=== PATIENT | female | born 1995 | race Caucasian/White ===

== ENCOUNTER 2017-07-06 23:43 | Emergency (ER) | payer OTHER ==
[~2017-07-06] VITALS: Ht 167.6 cm; Wt 56.5 kg
[2017-07-06 23:50] VITALS: TEMP 36.7; Ht 167.6 cm; Wt 56.5 kg
[2017-07-07 00:27] LABS: BASO % 0.4 %; BASO ABS # 0.03 K/uL (0-0.2); COMPLETE YES; EOS % 1.3 %; HEMATOCRIT 39.5 % (37-47); IG% 0.4 %; LYMPH % 40.9 %; LYMPH ABS # 3.27 K/uL (1.2-3.4); MEAN CELL VOLUME 83.5 fL (80-100); MEAN CORPUSCULAR HEMOGLOBIN 28.1 pg (25-34); MEAN CORPUSCULAR HGB CONC 33.7 g/dl (32-36); MEAN PLATELET VOLUME 10.1 fL (7.4-10.4); MONO % 6.8 %; NEUT % 50.2 %; PLATELET COUNT 210 K/uL (130-400); RED BLOOD COUNT 4.73 M/uL (4.2-5.4)
[2017-07-07] MEDS ORDERED: BCPILLS PO (00:31)
[2017-07-07 00:49] LABS: BUN/CREATININE RATIO 18.5 (10-20); CALCIUM 9.4 mg/dl (8.5-10.1); CREATININE 0.81 mg/dl (0.60-1.20); POTASSIUM 3.5 mmol/L (3.5-5.1)
[2017-07-07 00:52] LABS: ALB/GLOB RATIO 0.9 (0.9-2)
[2017-07-07 01:24] LABS: LYME DISEASE AB IGG NEG (NEG); LYME DISEASE AB IGM NEG (NEG)
[2017-07-07 03:37] VITALS: BP 92/49; PULSE 82; O2SAT 99
--- NOTE | 2017-07-07 05:22 | EMERGENCY ROOM VISIT NOTE ---
History First contact with patient: 23:54 Chief Complaint: KNEEPAIN Stated Complaint: SWELLING,REDNESS,PAIN BEHIND RIGHT KNEE History of Present Illness The patient is a 21 year old female who presents to the Emergency Room with complaints of redness and swelling to the right knee posteriorly for the past few days. The patient does not recall injury or trauma. She has not had fever or chills. She is able to ambulate without difficulty and has not had similar symptoms in the past. The patient is accompanied by her mother, who states there is a family history of antithrombin III, however the patient herself has never been evaluated for this. There is a history of DVT and PE on the maternal grandmother's side. The patient herself does not have fever, chills, chest pain, chest tightness, or shortness of breath. She does not recall having symptoms like this in the past. She is on control, however has not had significant travel history in the past few months. The patient rates her current discomfort a 4/10. Review of Systems More than 10 systems were reviewed and otherwise negative with the exception of history of present illness. Past Medical/Surgical History No chronic medical disease Family History No pertinent family history Social History Smoking Status: Never Smoker Housing Status: lives with family Current/Historical Medications Scheduled Control Pills ( Control Pills), 1 TAB PO DAILY Physical Exam Vital Signs Date Time Temp Pulse Resp B/P (MAP) Pulse Ox O2 Delivery O2 Flow Rate FiO2 07/07/17 03:37 82 18 92/49 99 07/07/17 02:39 70 18 104/49 99 Room Air 07/06/17 23:50 36.7 88 16 119/67 100 Room Air Pain Rating (0-10): 0 Physical Exam VITALS: Vitals are noted on the nurse's note and reviewed by myself. Vital signs stable. GENERAL: Well-developed, well-nourished, white female, who is in no acute distress and resting comfortably. Patient is cooperative with the examination. HEART: Regular rate and rhythm without murmurs gallops or rubs. LUNGS: Clear to auscultation bilaterally without wheezes, rales or rhonchi. No retractions or accessory muscle use. ABDOMEN: Positive normal bowel sounds x 4. Soft, nontender, without masses or organomegaly. No guarding or rebound tenderness. MUSCULOSKELETAL: There is a maculopapule ovoid rash in the posterior fossa of the right knee. This is nontender, nonpurpritic, and nonpetechial. There is no significant edema or palpable cord. No obvious cellulitis. No fluctuance or abscess. NEURO: Patient was alert and oriented to person place and time. CN II through XII grossly intact. Medical Decision & Procedures ER Provider Diagnostic Interpretation: Preliminary Findings Only See Final Report For Complete Findings US VENOUS RIGHT LOWER EXTREMITY: No evidence of deep venous thrombosis. Laboratory Results 07/07/17 00:17 Red Blood Count 4.73, Mean Corpuscular Volume 83.5, Mean Corpuscular Hemoglobin 28.1, Mean Corpuscular Hemoglobin Concent 33.7, Mean Platelet Volume 10.1, Neutrophils (%) (Auto) 50.2, Lymphocytes (%) (Auto) 40.9, Monocytes (%) (Auto) 6.8, Eosinophils (%) (Auto) 1.3, Basophils (%) (Auto) 0.4, Neutrophils # (Auto) 4.03, Lymphocytes # (Auto) 3.27, Monocytes # (Auto) 0.54, Eosinophils # (Auto) 0.10, Basophils # (Auto) 0.03 07/07/17 00:17 Test 07/07/17 00:17 White Blood Count 8.00 K/uL (4.8-10.8) Red Blood Count 4.73 M/uL (4.2-5.4) Hemoglobin 13.3 g/dL (12.0-16.0) Hematocrit 39.5 % (37-47) Mean Corpuscular Volume 83.5 fL (80-100) Mean Corpuscular Hemoglobin 28.1 pg (25-34) Mean Corpuscular Hemoglobin Concent 33.7 g/dl (32-36) Platelet Count 210 K/uL (130-400) Mean Platelet Volume 10.1 fL (7.4-10.4) Neutrophils (%) (Auto) 50.2 % Lymphocytes (%) (Auto) 40.9 % Monocytes (%) (Auto) 6.8 % Eosinophils (%) (Auto) 1.3 % Basophils (%) (Auto) 0.4 % Neutrophils # (Auto) 4.03 K/uL (1.4-6.5) Lymphocytes # (Auto) 3.27 K/uL (1.2-3.4) Monocytes # (Auto) 0.54 K/uL (0.11-0.59) Eosinophils # (Auto) 0.10 K/uL (0-0.5) Basophils # (Auto) 0.03 K/uL (0-0.2) RDW Standard Deviation 42.0 fL (36.4-46.3) RDW Coefficient of Variation 13.8 % (11.5-14.5) Immature Granulocyte % (Auto) 0.4 % Immature Granulocyte # (Auto) 0.03 K/uL (0.00-0.02) Anion Gap 7.0 mmol/L (3-11) Est Creatinine Clear Calc Drug Dose 99.6 ml/min Estimated GFR () 122.0 Estimated GFR (Non- 105.3 BUN/Creatinine Ratio 18.5 (10-20) Calcium Level 9.4 mg/dl (8.5-10.1) Total Bilirubin 0.4 mg/dl (0.2-1) Aspartate Amino Transf (AST/SGOT) 16 U/L (15-37) Alanine Aminotransferase (ALT/SGPT) 23 U/L (12-78) Alkaline Phosphatase 52 U/L (45-117) Total Protein 8.3 gm/dl (6.4-8.2) Albumin 4.0 gm/dl (3.4-5.0) Globulin 4.3 gm/dl (2.5-4.0) Albumin/Globulin Ratio 0.9 (0.9-2) Lyme Disease IgG Antibody NEG (NEG) Lyme Disease IgM Antibody NEG (NEG) ED Course Physical exam and history were performed. Nursing notes, EMR, and Medication List were personally reviewed. Patient appears to have an ovoid rash on the posterior aspect of her right knee , which clinically is where she is with concern. The patient has not had fever or chills. No breathing difficulty or known insect bite. IV access was established and labs were obtained. Ultrasound was performed. The patient's blood work is as above. She does not have an elevated white blood cell count suggesting infection. Her Lyme screen was negative. She is not anemic and her platelet count is also normal. Ultrasound does not show evidence of DVT. I discussed options of care with the patient and family. The patient will be treated conservatively with [id number] Benadryl for the rash itself. I do recommend close follow-up as the patient certainly could have a very early Lyme disease process that is causing a false negative test. The patient may also wish to have outpatient workup regarding the family history of coagulopathy. The patient was thoroughly invited back to the ER for any new, worsening, or concerning symptoms. She was care and rated her discomfort a 0/ 10 at the time of departure. The chart was completed utilizing [employer] Speech Voice Recognition Software. Grammatical errors, random word insertions, pronoun errors, and incomplete sentences are an occasional consequence of this system due to software limitations, ambient noise, and hardware issues. Any formal questions or concerns about the content, text, or information contained within the body of this dictation should be directly addressed to the provider for clarification. . Medical Decision Differential diagnosis: Etiologies such as DVT, musculoskeletal, infection, joint effusion, trauma, lymphedema, idiopathic, CHF, as well as others were entertained.. Impression Primary Impression: Rash and nonspecific skin eruption Departure Information Dispostion Home / Self-Care Condition GOOD Forms HOME CARE DOCUMENTATION FORM, IMPORTANT VISIT INFORMATION Patient Instructions My [facility] Additional Instructions You were seen and evaluated today on an emergency basis only. This is not a substitute for, or an effort to provide, complete comprehensive medical care. It is not possible to recognize and treat all injuries or illnesses in a single emergency department visit. For this reason it is recommended that you followup with your primary care physician in one week for a recheck of your condition. We do recommend that you have follow-up Lyme testing. Your initial testing here was negative. You may also wish to have blood work to assess for risk of blood clots, as you have a family history of this. Use [id number] Benadryl 25 mg every 6 hours as needed for the rash or itching. You are welcome to return to the emergency department anytime with new, worsening, or concerning symptoms.
--- NOTE | 2017-07-07 06:50 | DIAGNOSTIC IMAGING REPORT ---
RIGHT LOWER EXTREMITY VENOUS DOPPLER CLINICAL HISTORY: RLE swelling. Rash behind knee; COMPARISON STUDY: No previous studies for comparison. TECHNIQUE: Sonography of the deep venous system of the right lower extremity was performed. Compression and augmentation were evaluated. FINDINGS: The common femoral, superficial femoral and popliteal veins were compressible. Augmentation was normal. Flow was shown within the deep calf vessels. IMPRESSION: No evidence of deep venous thrombus within the right lower extremity. Electronically signed by: Wilner Reynolds M.D. 07/07/2017 6:49 AM Dictated Date/Time: 07/07/2017 6:48 AM
== END 2017-07-07 03:37 | disposition home or self-care (01) ==
LOC: C.EDB 23:46
DX: R21 Rash and other nonspecific skin eruption (principal)